=== PATIENT | female | born 2000 | race Caucasian/White ===

== ENCOUNTER 2019-10-03 22:22 | Emergency (ER) | payer BC ==
[~2019-10-03] VITALS: Ht 162.5 cm; Wt 88.9 kg
[~2019-10-03 22:22] MED LIST: MOTRIN400 MG PO
[2019-10-03] MEDS ORDERED: PROVENTIL HFA6.7 GM INH (23:45)
== END 2019-10-03 23:53 | disposition home or self-care (01) ==
LOC: ED 22:22
DX: J45.909 Unspecified asthma, uncomplicated (principal); Z91.010 Allergy to peanuts; Z91.018 Allergy to other foods

== ENCOUNTER 2025-08-24 05:28 | Emergency (ER) | payer BC ==
[~2025-08-24] VITALS: Ht 160 cm; Wt 108.9 kg
[~2025-08-24 05:28] MED LIST changes: +PROVENTIL HFA6.7 GM INH
[2025-08-24] MEDS ORDERED: Albuterol Sulf/Ipratropium 3 ML VIAL NEB ONE (05:45)
[2025-08-24] MEDS ORDERED: PREDNISONE50 MG PO (06:38)
== END 2025-08-24 06:50 | disposition home or self-care (01) ==
LOC: ED 05:28
DX: J45.909 Unspecified asthma, uncomplicated (principal); Z91.010 Allergy to peanuts; Z91.018 Allergy to other foods